=== PATIENT | male | born 1990 | race Caucasian/White ===

== ENCOUNTER 2020-11-07 19:54 | Emergency (ER) | payer MEDICAID, OTHER ==
[~2020-11-07] VITALS: Ht 182.9 cm; Wt 90.7 kg
[2020-11-07 19:54] VITALS: BP_SYST 90
[2020-11-07 21:59] VITALS: BP_SYST 102
[2020-11-08] MEDS ORDERED: TUBERCULIN,PURIF.PROT.DERIV. 0.1 ML SYR ID ONE (03:25)
== END 2020-11-07 21:59 | disposition home or self-care (01) ==
LOC: SED 19:54
DX: S62.316A Displaced fracture of base of fifth metacarpal bone, right hand, initial encounter for closed fracture (principal); M79.642 Pain in left hand; V00.131A Fall from skateboard, initial encounter; Y93.51 Activity, roller skating (inline) and skateboarding; Y92.89 Other specified places as the place of occurrence of the external cause; Y99.8 Other external cause status
CPT/HCPCS: 86580; 99283